=== PATIENT | female | born 1995 | race Caucasian/White ===

== ENCOUNTER 2025-06-30 15:09 | Outpatient (CLI) | payer OTHER, SELFPAY ==
--- NOTE | ~2025-06-30 | US_ITS ---
EXAMINATION: US pelvic complete w TV, 06/30/2025 16:10 CDT HISTORY: ABN URTERINE BLEEDING Comparison: None Technique: Tony-scale and color Doppler images were obtained. Findings: Uterus: Uterus anteverted 6 x 3 x 4.1 cm, there are subcentimeter cervical nabothian cysts. . Endometrium 7 mm. Right Ovary:Right ovary 3 x 2.8 x 2.3 cm, no adnexal mass, normal flow, multiple follicles in a peripheral distribution. Left Ovary: Left ovary 2.8 x 2.4 x 2.2 cm, no adnexal mass, normal flow, multiple follicles in a peripheral distribution. Free Fluid: None Impression: Correlate for symptoms of polycystic ovarian syndrome Reviewed, dictated and finalized at location P. Impression: Correlate for symptoms of polycystic ovarian syndrome
--- NOTE | ~2025-06-30 | MR_ITS ---
EXAMINATION: MR brain/brain stem wo/w con DATE: 06/30/2025 16:27 INDICATION: Multiple sclerosis. TECHNIQUE: Magnetic resonance imaging (MRI) of the brain and brainstem was performed without and with 20 mL MultiHance intravenous contrast. COMPARISON: None. 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 There is no intracranial hemorrhage, acute infarction, or abnormal intracranial mass lesion. There is ex vacuo dilatation of right lateral ventricle. The orbits are normal. There is mild mucosal thickening in the paranasal sinuses. There is a small left mastoid effusion. IMPRESSION: 1. 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 2. No evidence of multiple sclerosis. Reviewed, dictated and finalized at location E. IMPRESSION: 1. 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 2. No evidence of multiple sclerosis.
== END 2025-06-30 15:10 | disposition home or self-care (01) ==
LOC: ANHIMG 15:16
PROVIDERS: PCP Nurse Practitioner Family; Referring Provider Psychiatry & Neurology Neurology; Visit Provider Obstetrics & Gynecology Gynecology
DX: N93.8 Other specified abnormal uterine and vaginal bleeding (principal); G35.D Multiple sclerosis, unspecified
CPT/HCPCS: 70553; 76830; 76856; A9577